=== PATIENT | female | born 1975 | race Caucasian/White ===

== ENCOUNTER 2016-06-09 15:42 | Emergency (ER) | payer OTHER ==
[~2016-06-09] VITALS: Ht 165.1 cm; Wt 77.2 kg
[2016-06-09 15:49] VITALS: TEMP 36.8; Ht 165.1 cm; Wt 77.2 kg
[2016-06-09] MEDS ORDERED: SODIUM CHLORIDE 0.9% 1000ML 1,000 ML IV STA (16:47)
[2016-06-09] MEDS ORDERED: MoRPHine SULFATE 4 MG/ML 1 ML CARP\\VIAL IV STA (16:47)
[2016-06-09] MEDS ORDERED: ONDANSETRON INJ 2 MG/ML 2 ML VIAL IV STA (16:47)
[2016-06-09] MEDS ORDERED: TRAM-10 PO (16:51)
[2016-06-09] MEDS ORDERED: CYNI1000 IM (16:51)
[2016-06-09] MEDS ORDERED: METR-163 PO (16:51)
[2016-06-09] MEDS ORDERED: CIPR-255 PO (16:51)
[2016-06-09] MEDS ORDERED: ERGO500037 PO (16:51)
[2016-06-09] MEDS ORDERED: MELO15TA4 PO (16:51)
[2016-06-09] MEDS ORDERED: ESCI1TAB10 PO (16:51)
[2016-06-09 16:55] LABS: BASO % 0.4 %; BASO ABS # 0.03 K/uL (0-0.2); COMPLETE YES; EOS % 2.4 %; HEMATOCRIT 38.9 % (37-47); IG% 0.1 %; LYMPH % 34.4 %; LYMPH ABS # 2.45 K/uL (1.2-3.4); MEAN CORPUSCULAR HEMOGLOBIN 33.3 pg (25-34); MEAN PLATELET VOLUME 11.1 fL (7.4-10.4); MONO % 4.1 %; NEUT % 58.6 %; PLATELET COUNT 113 K/uL (130-400); RED BLOOD COUNT 4.32 M/uL (4.2-5.4); WHITE BLOOD COUNT 7.12 K/uL (4.8-10.8)
[2016-06-09 17:06] LABS: URINE APPEARANCE CLEAR (CLEAR); URINE BILIRUBIN NEG (NEG); URINE COLOR YELLOW; URINE EPITHELIAL CELL AUTO >30 /lpf (0-5); URINE NITRITE POS (NEG); URINE PH 5.5 (4.5-7.5); UROBILINOGEN NEG (NEG); ZZUR CULT IF INDIC CLEAN CATCH NO
[2016-06-09 17:09] LABS: MANUAL MICROSCOPIC REQUIRED? NO; REVIEW REQ? NO
[2016-06-09 17:12] LABS: BUN/CREATININE RATIO 10.9 (10-20); CALCIUM 8.3 mg/dl (8.5-10.1); CREATININE 0.85 mg/dl (0.60-1.20); POTASSIUM 3.3 mmol/L (3.5-5.1)
[2016-06-09 17:15] LABS: ALB/GLOB RATIO 1.1 (0.9-2)
[2016-06-09] MEDS ORDERED: OPTIRAY 320 IV PRN (18:45)
[2016-06-09] MEDS ORDERED: HYDROmorphone INJ 1 MG/ML SYR IV STA (19:16)
[2016-06-09] MEDS ORDERED: HYDROmorphone INJ 0.5 MG/0.5 ML SYR ONE (19:27)
--- NOTE | 2016-06-09 20:20 | DIAGNOSTIC IMAGING REPORT ---
ABDOMEN AND PELVIS CT WITH IV AND ORAL CONTRAST CT DOSE: 367.10 mGy.cm HISTORY: Pain. Nausea. eval for josefina TECHNIQUE: Multiaxial CT images of the abdomen and pelvis were performed following the use of intravenous and oral contrast. COMPARISON STUDY: None. FINDINGS: Lung bases are clear. Liver spleen and pancreas are unremarkable. Mild wall edema versus technical artifact gastric antrum. Bowel pattern is unremarkable. The appendix is normal. No significant abdominal or pelvic adenopathy. 2 cm right ovarian cyst. 1.9 cm left ovarian cyst. 1.2 cm left ovarian cyst. Kidneys enhance uniformly and are negative for hydronephrosis. 1.5 cm left renal cyst. 1.6 cm hyperdense lower pole left renal cyst. IMPRESSION: 1. Normal bowel pattern. 2. Normal appendix. 3. Small bilateral ovarian cysts with several small left renal cyst. 3. Moderate wall edema versus technical artifact gastric antrum raising the possibility of peptic change. Electronically signed by: David Hoffmann M.D. 06/09/2016 8:19 PM Dictated Date/Time: 06/09/2016 8:14 PM
[2016-06-09] MEDS ORDERED: OXYC1TAB3 PO (20:37)
[2016-06-09] MEDS ORDERED: OXYCODONE IR HOME PACK PO ONE (20:45)
[2016-06-09 20:57] VITALS: BP 163/100; PULSE 74; O2SAT 95
--- NOTE | 2016-06-09 21:36 | EMERGENCY ROOM VISIT NOTE ---
History Report prepared by Lucy: Kelli Davis Under the Supervision of: Dr. Emiliano Mejia M.D. First contact with patient: 16:39 Chief Complaint: ABDOMINAL PAIN Stated Complaint: STOMACH PAIN Nursing Triage Summary: abdominal pain, nausea. not eating well. have been to [facility] x's 2 they arent doing anything to correct my pain. pain is located all throughout my abdomen. History of Present Illness The patient is a 41 year old female who presents to the Emergency Room with complaints of persistent abdominal pain that began about 2 or 3 weeks ago. Initially the pain was located in the middle of her abdomen, but progressed to her epigastrium and right side of her abdomen this this morning. She describes the pain as sharp. She has not been eating or drinking much because eating and drinking worsens her pain. She notes that she has been having bowel movements but has been passing little stool. She did have a bowel movement this morning which appeared mucousy. She notes that she has not been urinating much but denies any pain with urination. She feels like she has been having subjective fevers at night because she wakes up sweating but she has not taken her temperature. The patient has been seen at [facility] twice since the onset of her symptoms. She was initially seen about 2 weeks ago and had a CT scan which revealed ileitis. She was sent home with Percocet. She went back to the hospital just over a week ago and had an abdominal x-ray. At that point she was told that there was nothing else they could do for her and she was prescribed Tramadol because the Percocet made her feel weird. She was told to see a travel administrator but does not have an appointment set up because she has to see her PCP first. She had a colonoscopy this past March which she states was normal. There is no known family history of Crohn's disease although she does not know much about her father's side. Denies vomiting or other complaints. She does have her gallbladder and appendix. She reports only taking a half of a tramadol since she was seen last in [place]. She is currently on Cipro and Flagyl. Source of History: patient Onset: 2-3 weeks ago Position: abdomen (epigastrium, right side) Quality: sharp Timing: other (persistent) Modifying Factors (Worsening): eating, drinking Associated Symptoms: + fevers (subjective), + urinary symptoms (decreased output), No vomiting Review of Systems See HPI for pertinent positives & negatives. A total of 10 systems reviewed and were otherwise negative. Past Medical & Surgical Medical Problems: (1) History of melanoma Family History No pertinent family history stated. Social History Smoking Status: Current Every Day Smoker Marital Status: single Current/Historical Medications Scheduled Ciprofloxacin Hcl (Cipro), 500 MG PO BID Cyanocobalamin (Cyanocobalamin), 1,000 MCG IM MONTHLY Ergocalciferol (Vitamin D 86788 Unit), 50,000 INTER.UNIT PO MONTHLY Escitalopram Oxalate (Lexapro), 20 MG PO DAILY Meloxicam (Mobic), 15 MG PO DAILY Metronidazole (Flagyl), 500 MG PO QID Scheduled PRN Oxycodone Ir (Roxicodone Ir), 5 MG PO Q4H PRN for Pain Tramadol (Ultram), 50 MG PO Q6H PRN for Pain Allergies Coded Allergies: Penicillins (Verified Allergy, Intermediate, Rash, 06/09/16) Physical Exam Vital Signs Date Time Temp Pulse Resp B/P Pulse Ox O2 Delivery O2 Flow Rate FiO2 06/09/16 20:57 74 18 163/100 95 Room Air 06/09/16 19:33 63 18 163/100 97 Room Air 06/09/16 17:51 66 159/101 06/09/16 15:49 36.8 88 18 141/92 99 Room Air Physical Exam Constitutional: Vital signs reviewed. Eyes: Pupils are equal round reactive to light. Conjunctiva are noninjected. ENT: Pharynx is clear without erythema or exudate. Mucous membranes are dry. Neck supple without meningeal signs. Respiratory: Clear to auscultation bilaterally. Breath sounds are equal bilaterally. Cardiovascular: Regular rate and rhythm. No rubs or gallops. GI: Soft, nondistended. Tenderness throughout the right abdomen, greatest in the lower abdomen. No guarding. Bowel sounds are present. Musculoskeletal: No peripheral edema. No CVA tenderness. Integumentary: No cyanosis. Neurological: The patient is awake and alert. No focal deficits. Psychiatric: Normal affect. Medical Decision & Procedures ER Provider Diagnostic Interpretation: CT results as stated below per my review and radiologist interpretation. ABDOMEN AND PELVIS CT WITH IV AND ORAL CONTRAST CT DOSE: 367.10 mGy.cm HISTORY: Pain. Nausea. eval for josefina TECHNIQUE: Multiaxial CT images of the abdomen and pelvis were performed following the use of intravenous and oral contrast. COMPARISON STUDY: None. FINDINGS: Lung bases are clear. Liver spleen and pancreas are unremarkable. Mild wall edema versus technical artifact gastric antrum. Bowel pattern is unremarkable. The appendix is normal. No significant abdominal or pelvic adenopathy. 2 cm right ovarian cyst. 1.9 cm left ovarian cyst. 1.2 cm left ovarian cyst. Kidneys enhance uniformly and are negative for hydronephrosis. 1.5 cm left renal cyst. 1.6 cm hyperdense lower pole left renal cyst. IMPRESSION: 1. Normal bowel pattern. 2. Normal appendix. 3. Small bilateral ovarian cysts with several small left renal cyst. 3. Moderate wall edema versus technical artifact gastric antrum raising the possibility of peptic change. Electronically signed by: David Hoffmann M.D. 06/09/2016 8:19 PM Dictated Date/Time: 06/09/2016 8:14 PM Laboratory Results 06/09/16 16:45 Red Blood Count 4.32, Mean Corpuscular Volume 90.0, Mean Corpuscular Hemoglobin 33.3, Mean Corpuscular Hemoglobin Concent 37.0, Mean Platelet Volume 11.1, Neutrophils (%) (Auto) 58.6, Lymphocytes (%) (Auto) 34.4, Monocytes (%) (Auto) 4.1, Eosinophils (%) (Auto) 2.4, Basophils (%) (Auto) 0.4, Neutrophils # (Auto) 4.17, Lymphocytes # (Auto) 2.45, Monocytes # (Auto) 0.29, Eosinophils # (Auto) 0.17, Basophils # (Auto) 0.03 06/09/16 16:45 Test 06/09/16 16:38 06/09/16 16:45 Urine Color YELLOW Urine Appearance CLEAR (CLEAR) Urine pH 5.5 (4.5-7.5) Urine Specific [place] 1.010 (1.000-1.030) Urine Protein NEG (NEG) Urine Glucose (UA) NEG (NEG) Urine Ketones 1+ (NEG) Urine Occult Blood NEG (NEG) Urine Nitrite POS (NEG) Urine Bilirubin NEG (NEG) Urine Urobilinogen NEG (NEG) Urine Leukocyte Esterase TRACE (NEG) Urine WBC (Auto) 1-5 /hpf (0-5) Urine RBC (Auto) 0-4 /hpf (0-4) Urine Hyaline Casts (Auto) 1-5 /lpf (0-5) Urine Epithelial Cells (Auto) >30 /lpf (0-5) Urine Bacteria (Auto) NEG (NEG) White Blood Count 7.12 K/uL (4.8-10.8) Red Blood Count 4.32 M/uL (4.2-5.4) Hemoglobin 14.4 g/dL (12.0-16.0) Hematocrit 38.9 % (37-47) Mean Corpuscular Volume 90.0 fL (80-100) Mean Corpuscular Hemoglobin 33.3 pg (25-34) Mean Corpuscular Hemoglobin Concent 37.0 g/dl (32-36) Platelet Count 113 K/uL (130-400) Mean Platelet Volume 11.1 fL (7.4-10.4) Neutrophils (%) (Auto) 58.6 % Lymphocytes (%) (Auto) 34.4 % Monocytes (%) (Auto) 4.1 % Eosinophils (%) (Auto) 2.4 % Basophils (%) (Auto) 0.4 % Neutrophils # (Auto) 4.17 K/uL (1.4-6.5) Lymphocytes # (Auto) 2.45 K/uL (1.2-3.4) Monocytes # (Auto) 0.29 K/uL (0.11-0.59) Eosinophils # (Auto) 0.17 K/uL (0-0.5) Basophils # (Auto) 0.03 K/uL (0-0.2) RDW Standard Deviation 44.1 fL (36.4-46.3) RDW Coefficient of Variation 13.3 % (11.5-14.5) Immature Granulocyte % (Auto) 0.1 % Immature Granulocyte # (Auto) 0.01 K/uL (0.00-0.02) Anion Gap 11.0 mmol/L (3-11) Est Creatinine Clear Calc Drug Dose 87.7 ml/min Estimated GFR () 97.3 Estimated GFR (Non- 83.9 BUN/Creatinine Ratio 10.9 (10-20) Calcium Level 8.3 mg/dl (8.5-10.1) Total Bilirubin 0.4 mg/dl (0.2-1) Aspartate Amino Transf (AST/SGOT) 31 U/L (15-37) Alanine Aminotransferase (ALT/SGPT) 31 U/L (12-78) Alkaline Phosphatase 50 U/L (45-117) Total Protein 7.9 gm/dl (6.4-8.2) Albumin 4.1 gm/dl (3.4-5.0) Globulin 3.8 gm/dl (2.5-4.0) Albumin/Globulin Ratio 1.1 (0.9-2) Lipase 82 U/L (73-393) Laboratory results as reviewed by me. Medications Administered Medications (Trade) Dose Ordered Sig/Wilfrido Route Start Time Stop Time Status Last Admin Dose Admin Morphine Sulfate (MoRPHine SULFATE INJ) 4 mg NOW STAT IV 06/09/16 16:47 06/09/16 16:48 DC 06/09/16 17:04 4 MG Ondansetron HCl 4 mg 4 mg NOW STAT IV 06/09/16 16:47 06/09/16 16:48 DC 06/09/16 17:04 4 MG Sodium Chloride (Nss 1000ml) 1,000 ml @ 999 mls/hr Q1H1M STAT IV 06/09/16 16:47 06/09/16 17:47 DC 06/09/16 17:08 999 MLS/HR Hydromorphone HCl (Dilaudid Inj) 0.5 mg STK-MED ONCE .ROUTE 06/09/16 19:27 06/09/16 19:28 DC 06/09/16 19:29 0.5 MG Oxycodone HCl (Roxicodone Immediate Rel 5MG Home Pack) 1 homepack UD ONCE PO 06/09/16 20:45 06/09/16 20:46 DC 06/09/16 20:53 1 HOMEPACK ED Course 1641: The patient was evaluated in room A3. A complete history and physical exam was performed. 1647: Ordered NSS 1000 ml @ 999 mls/hr IV, Zofran Inj 4 mg IV, Morphine Sulfate 4 mg IV. 1833: I reassessed the patient and talked to her about her [place] test results. She is currently feeling a little bloated from the contrast. 1915: Ordered Dilaudid Inj 0.5 mg IV. 2030: I reassessed the patient and talked to her about test results. She was feeling better. I recommended Prilosec because there were some signs of inflammation to her stomach. The patient will be discharged home. 2044: Ordered Oxycodone HCl 1 homepack PO. Medical Decision This is a 41-year-old female who presents with abdominal pain. Differential diagnosis includes inflammatory bowel disease, irritable bowel syndrome, mass, appendicitis, ovarian cyst. I did perform a limited focused review of portions of the patient's old chart on the electronic medical record. The patient has had no recent pertinent visits to this hospital. CT scan from the - findings are concerning for irritable bowel syndrome involving the terminal ileum. This could be acute on chronic as there is some fat infiltrate in the wall of the terminal ileum. The appendix appears normal. I did evaluate the patient as noted above. The patient is presenting with 2-3 weeks of abdominal pain. She was told that she had ileitis and needs to follow with GI but has not been able to get an appointment. She presents here for continued pain. IV access was established. I did treat the patient with IV morphine and Zofran. She was given normal saline IV.she had continued pain and was given additional Dilaudid 0.5 mg IV. I did order a urinalysis as described above. She denies having any urinary symptoms. I did order and review the patient's blood work as noted in the electronic medical record. Her white blood cell count is not elevated. I did order a CT of the abdomen and pelvis. I did review the images myself as well as the radiology report as described above. The appendix is normal. She has no signs of terminal ileitis on her CT scan. She does have bilateral ovarian cysts as well as some questionable thickening of her gastric antrum. I did reassess the patient. She is feeling better. I did discuss the test results with her. I did recommend she follow up with her doctor as well as with [employer]. She will attempt Prilosec because of the findings on her CT scan. Regarding pain control she stated that she would try oxycodone again as the Ultram was not helping her. I did prescribe her a short course of oxycodone. She was discharged in good condition. [place] Drug Monitoring Program Search Results: patient reviewed within database, no issues identified Impression Primary Impression: Right sided abdominal pain Additional Impression: Ovarian cyst Scribe Attestation The scribe's documentation has been prepared under my direct and personally reviewed by me in its entirety. I confirm that the note above accurately reflects all work, treatment, procedures, and medical decision making performed by me. Departure Information Dispostion Home / Self-Care Prescriptions Oxycodone Ir (Roxicodone Ir) 5 Mg Tab 5 MG PO Q4H Y for Pain, #14 TAB Prov: Emiliano Mejia M.D. 06/09/16 Referrals Myah De La Rosa PA-C (PCP) Patient Instructions ED Abd Pain Unkn Cause Fem, [facility] Additional Instructions You have been examined and treated today on an emergency basis only. This is not a substitute for, or an effort to provide, complete comprehensive medical care. It is impossible to recognize and treat all injuries or illnesses in a single emergency department visit. It is therefore important that you follow up closely with your physician. Call as soon as possible for an appointment. Return for worsening symptoms or if you develop fever, vomiting, or any other concerning symptoms. Problem Qualifiers Additional Impression: Ovarian cyst Laterality: bilateral Qualified Codes: N83.201 - Unspecified ovarian cyst, right side; N83.202 - Unspecified ovarian cyst, left side
== END 2016-06-09 21:21 | disposition home or self-care (01) ==
LOC: C.EDB 15:44 → C.EDA 21:21
DX: R10.9 Unspecified abdominal pain (principal); N83.201 Unspecified ovarian cyst, right side; N83.202 Unspecified ovarian cyst, left side; Z85.820 Personal history of malignant melanoma of skin; F17.210 Nicotine dependence, cigarettes, uncomplicated; Z79.2 Long term (current) use of antibiotics; Z79.899 Other long term (current) drug therapy